=== PATIENT | male | born 1955 | race African-American/Black ===

== ENCOUNTER 2017-01-07 11:56 | Day surgery (SDC) | payer OTHER ==
[~2017-01-07] VITALS: Ht 182.9 cm; Wt 89.2 kg
[~2017-01-07 11:56] MED LIST: AMLO-218 PO; ASPI-535; METO-335
[2017-01-07 13:18] VITALS: Ht 182.9 cm; Wt 89.2 kg
[2017-01-07 14:09] VITALS: BP 141/80; PULSE 70; RESP 18
[2017-01-07] MEDS ORDERED: LIDOCAINE 2% (SDV) 5 ML INJ ONE (14:15)
[2017-01-07] MEDS ORDERED: PROPOFOL 40 ML ONE (14:15)
--- NOTE | 2017-01-07 14:46 | OPPN ---
Date/Time of Note Date/Time of Note DATE: 01/07/17 TIME: 14:41 Proc Note GI Procedure Date 01/07/17 Indication: other (History of Gist tumor post resection) Pre-procedure Diagnosis History of gastric gist tumor post resection Post-procedure Diagnosis Impression: Moderate distal erosive esophagitis. There appears to be evidence of surgery in the proximal stomach The area of the cardia shows some erythema and atrophy. Biopsies were obtained There is a 2 cm mass in the fundus of the stomach that appears to represent gastric folds postoperatively. Biopsies were obtained Moderate gastritis is present. Otherwise normal EGD. Plan: PPI therapy Review pathology as soon as available. Follow-up as previously scheduled. . Procedure Performed: Endoscopy (With biopsies) Surgeon KHRIS HOUSER MD See signature line Laboratory Director none Anesthesia Type: MAC Anesthesiologist: CAMILLE STORY MD Tourniquet Time none EBL none Transfusion required none Biopsy 1: Gastric cardia Biopsy 2: Gastric fundus? Mass Grafts/Implants none Tubes/Drains none Complication(s) none Disposition: home Procedure Description After informed consent, with the patient/relatives understanding the procedure, its indications, potential risks and complications, including but not limited to : allergic reaction, bleeding, perforation or infection, and after all pertinent questions were answered to the patients satisfaction, the patient/ relatives signed witnessed informed consent. Following this, premedication was administered slowly IV push under careful cardiovascular and respiratory monitoring with pulse oximetry, automatic blood pressure, and sales review clerk. Once the sedative effect was achieved the patient was place in the left lateral decubitus, the panendoscope was introduced and advanced under visual control. Careful examination of the upper gastrointestinal tract, both on insertion as well as withdrawal of the instrument disclosing the following findings: ESOPHAGUS: the mucosa of the entire esophagus was carefully examined and showed the following findings: There is significant erythema and edema of the mucosa of the distal esophagus. Otherwise the mucosa appears within normal limits. There is no evidence of varices, neoplasm, or stricture. No Hiatal Hernia identified. STOMACH: Upon entrance to the stomach air was insufflated, the gastric sal distended normally. The mucosa of the fundus, body and antrum of the stomach was carefully examined both head-on and on retroflexion, and showed the following findings: There is an area of erythema and apparent scar tissue in the cardia. Biopsies were obtained. There is a 2 cm mass which appears to be an accumulation of gastric folds likely postoperatively, it is soft and pliable. Biopsies were obtained. The antrum the stomach shows erythema and edema with a moderate degree. Otherwise the mucosa appears within normal limits with no abnormalities. There is no evidence of ulcers or neoplasm. PYLORUS: The pylorus was carefully examined and showed the following findings: the pylorus appears patent and within normal limits, with no evidence of gastric outlet obstruction. DUODENUM: The duodenal mucosa was carefully examined in the duodenal bulb as well as the second portion of the duodenum and showed the following findings: the mucosa appears unremarkable with no evidence of duodenitis, ulcer or neoplasm. Copies To: CC: KHRIS HOUSER MD, MORDO MD Jan 07, 2017 14:46
[2017-01-07 15:01] VITALS: BP 136/95; PULSE 63; RESP 16
== END 2017-01-07 16:15 | disposition home or self-care (01) ==
LOC: GIL 11:56
PROVIDERS: ATTEND Internal Medicine Gastroenterology
DX: K29.30 Chronic superficial gastritis without bleeding (principal); K20.8 Other esophagitis; I10 Essential (primary) hypertension
CPT/HCPCS: 43239; Z7610; 88305; 88312